=== PATIENT | female | born 1975 | race Two or more races ===

== ENCOUNTER 2022-01-23 21:42 | Emergency (ER) | payer BC ==
[~2022-01-23] VITALS: Ht 162.6 cm; Wt 61.2 kg
== END 2022-01-23 23:30 | disposition home or self-care (01) ==
LOC: ER 21:42
DX: S79.812A Other specified injuries of left hip, initial encounter (principal); S29.8XXA Other specified injuries of thorax, initial encounter; W19.XXXA Unspecified fall, initial encounter; Y93.89 Activity, other specified; Y92.89 Other specified places as the place of occurrence of the external cause